=== PATIENT | male | born 1950 | race Caucasian/White ===

== ENCOUNTER 2025-05-12 11:10 | Inpatient (IN) | payer OTHER ==
[~2025-05-12] VITALS: Ht 165.1 cm; Wt 60.0 kg
[2025-05-12] MEDS: ONDANSETRON HCL 4 MG/2 ML VIAL IVP ONE (12:07)
[2025-05-12] MEDS: SODIUM CHLORIDE 0.9% 1,000 ML IV ONE ×2 (12:07→14:37)
[2025-05-12 13:22] LABS: PLATELET COUNT (AUTO) 300 K/uL (150-450); RED BLOOD CELL COUNT(AUTO) 4.33 MIL/uL (4.50-5.90); RED CELL DISTRIBUTION WIDTH 15.3 % (11.5-14.5); WHITE BLOOD COUNT (AUTO) 9.1 K/uL (4.5-11.0)
[2025-05-12 13:49] LABS: APPEARANCE,URINE CLEAR (CLEAR); GLUCOSE, URINE (UA) NEGATIVE (NEGATIVE); LEUKOCYTE ESTERASE ,URINE NEGATIVE (NEGATIVE); NITRATE,URINE NEGATIVE (NEGATIVE); OCCULT BLOOD,URINE NEGATIVE (NEGATIVE); PH,URINE DRUG SCREEN 7.0 (5.0-8.0); SPECIFIC GRAVITIY, URINE 1.024 (1.003-1.030)
[2025-05-12 13:57] LABS: AMPHET/METH SCREEN,URINE NEGATIVE (NEGATIVE); BARBITURATE SCREEN, URINE NEGATIVE (NEGATIVE); CANNABINOID SCREEN,URINE NEGATIVE (NEGATIVE); COCAINE SCREEN,URINE NEGATIVE (NEGATIVE); METHADONE SCREEN, URINE NEGATIVE (NEGATIVE)
[2025-05-12 13:59] LABS: ALCOHOL, URINE DRUG SCREEN NEGATIVE (NEGATIVE)
[2025-05-12 14:02] LABS: CALCIUM, TOTAL 8.5 mg/dL (8.8-10.5); CREATININE 0.43 mg/dL (0.60-1.30); GLOMERULAR FILTR. RATE CALC > 60 mL/min (>60); GLUCOSE,RANDOM 100 mg/dL (70-110); SODIUM SERUM 139 mmol/L (136-145); UREA NITROGEN, BLOOD 14 mg/dL (7-18)
[2025-05-12 14:05] LABS: TROPONIN I-HIGH SENSITIVITY 12 ng/L (<76)
[2025-05-12 14:12] LABS: LACTIC ACID 0.5 mmol/L (0.4-2.0)
[2025-05-12] MEDS ORDERED: DOCU-119 PO (17:13)
[2025-05-12] MEDS ORDERED: IPRATROPIUM BROMIDE 0.5 MG/2.5 ML NEB SOLUTION NEB PRN (20:00)
[2025-05-12] MEDS ORDERED: ACETAMINOPHEN 325 MG TABLET PO PRN (20:00)
[2025-05-12] MEDS ORDERED: ONDANSETRON HCL 4 MG/2 ML VIAL IVP PRN (20:00)
[2025-05-12] MEDS ORDERED: BISACODYL 10 MG RECTAL RECTAL SUPPOSITORY PR PRN (20:00)
[2025-05-12] MEDS ORDERED: MAGNESIUM HYDROXIDE SUSPENSION 30 ML UDCUP PO PRN (20:00)
[2025-05-12] MEDS ORDERED: MORPHINE SULFATE 4 MG/ML SYRINGE IVP PRN (20:00)
[2025-05-12] MEDS ORDERED: ALBUTEROL SULFATE 2.5 MG/0.5 ML NEB SOLUTION NEB PRN (20:00)
[2025-05-12] MEDS ORDERED: ZOLPIDEM TARTRATE 5 MG TABLET PO PRN (20:00)
[2025-05-12] MEDS ORDERED: HYDROCODONE/ACETAMINOPHEN 5-325 MG TABLET PO PRN (20:00)
[2025-05-12] MEDS: DOCUSATE SODIUM 100 MG CAPSULE PO SCH (21:00)
[2025-05-12 22:00] VITALS: O2SAT 97
[2025-05-12 23:18] VITALS: BP 150/87; PULSE 67; RESP 18; TEMP 98.5; O2SAT 100
[2025-05-12] MEDS: HEPARIN SODIUM,PORCINE 5,000 UNITS/ML VIAL SQ SCH (23:41)
[2025-05-12] MEDS: RINGERS SOLUTION,LACTATED 1,000 ML IV SCH (23:41)
[2025-05-13] MEDS: INFLUENZA VIRUS VACCINE TVS (6MO+) 2025-26/PF 45 MCG/0.5 ML SYRINGE IM. ONE (03:15)
[2025-05-13 03:55] VITALS: BP 129/71; PULSE 61; RESP 17; TEMP 98; O2SAT 100
[2025-05-13 08:43] VITALS: BP 131/67; PULSE 60; RESP 18; TEMP 98.2; O2SAT 97
[2025-05-13] MEDS: PANTOPRAZOLE SODIUM 40 MG/VIAL IVP SCH (09:02)
[2025-05-13] MEDS ORDERED: SODIUM CHLORIDE 0.9% 1,000 ML ONE (12:23)
[2025-05-13] MEDS: CHLORHEXIDINE GLUCONATE 2% TOWELETTE [2'S/6'S] TP ONE (12:40)
[2025-05-13] MEDS: ETHYL ALCOHOL 62% ANTISEPTIC NASAL SANITIZER 0.6 ML AMPUL NASAL ONE (12:40)
[2025-05-13] MEDS ORDERED: BUPIVACAINE 0.25%/EPI 1:200,000/PF 10 ML VIAL ONE (13:09)
[2025-05-13] MEDS ORDERED: RINGERS SOLUTION,LACTATED 1,000 ML IV ONE (13:58)
[2025-05-13] MEDS: BUPIVACAINE 0.25%/EPI 1:200,000/PF 30 ML VIAL ONE (14:46)
[2025-05-13] MEDS ORDERED: MORPHINE SULFATE 2 MG/ML SYRINGE IVP PRN (15:15)
[2025-05-13] MEDS ORDERED: HYDROCODONE/ACETAMINOPHEN 5-325 MG TABLET PO PRN (15:15)
[2025-05-13 20:50] VITALS: BP 116/61; PULSE 86; RESP 18; TEMP 99.3; O2SAT 98
[2025-05-13 21:58] VITALS: TEMP 98.2
[2025-05-14 04:47] VITALS: BP 131/59; PULSE 74; RESP 18; TEMP 98.4; O2SAT 96
[2025-05-14 08:26] VITALS: BP 156/71; PULSE 65; RESP 18; TEMP 98.2; O2SAT 99
[2025-05-14 09:37] LABS: PLATELET COUNT (AUTO) 249 K/uL (150-450); RED BLOOD CELL COUNT(AUTO) 4.32 MIL/uL (4.50-5.90); RED CELL DISTRIBUTION WIDTH 15.4 % (11.5-14.5); WHITE BLOOD COUNT (AUTO) 13.0 K/uL (4.5-11.0)
[2025-05-14 09:48] LABS: CALCIUM, TOTAL 8.1 mg/dL (8.8-10.5); CREATININE 0.62 mg/dL (0.60-1.30); GLOMERULAR FILTR. RATE CALC > 60 mL/min (>60); GLUCOSE,RANDOM 130 mg/dL (70-110); SODIUM SERUM 138 mmol/L (136-145); UREA NITROGEN, BLOOD 16 mg/dL (7-18)
[2025-05-14] MEDS ORDERED: SUGAMMADEX SODIUM 200 MG/2 ML VIAL IVP ONE (17:42)
[2025-05-14] MEDS ORDERED: KETOROLAC TROMETHAMINE 60 MG/2 ML VIAL IM ONE (17:42)
[2025-05-14] MEDS ORDERED: ONDANSETRON HCL 4 MG/2 ML VIAL ONE (17:42)
[2025-05-14] MEDS ORDERED: LIDOCAINE/PF 2% 5 ML VIAL ONE (17:42)
[2025-05-14] MEDS ORDERED: DEXAMETHASONE SOD PHOS 4 MG/ML VIAL ONE (17:42)
[2025-05-14] MEDS ORDERED: ROCURONIUM BROMIDE 10 MG/ML 5 ML VIAL ONE (17:42)
[2025-05-14] MEDS ORDERED: PROPOFOL 1% 20 ML VIAL IVP ONE (17:42)
[2025-05-14 19:50] VITALS: BP 129/71; PULSE 79; RESP 18; TEMP 98.1; O2SAT 99
[2025-05-15 04:16] VITALS: BP 133/85; PULSE 81; RESP 18; TEMP 99.5; O2SAT 97
[2025-05-15 08:53] VITALS: BP 144/80; PULSE 82; RESP 18; TEMP 97.7; O2SAT 99
[2025-05-15] MEDS ORDERED: FentaNYL CITRATE PF 100 MCG/2 ML VIAL IM ONE (09:33)
[2025-05-15 10:56] LABS: PLATELET COUNT (AUTO) 241 K/uL (150-450); RED BLOOD CELL COUNT(AUTO) 4.49 MIL/uL (4.50-5.90); RED CELL DISTRIBUTION WIDTH 15.7 % (11.5-14.5); WHITE BLOOD COUNT (AUTO) 9.1 K/uL (4.5-11.0)
[2025-05-15] MEDS ORDERED: MAGN-169 PO (12:27)
[2025-05-15] MEDS ORDERED: ACET-2247 PO (12:27)
== END 2025-05-15 16:25 | DRG 352 ==
LOC: EMS 11:10 → EDH 16:44 → 6N 23:10
PROVIDERS: ADMIT Hospitalist; ATTEND Hospitalist
PROC: 0YU60JZ Supplement Left Inguinal Region with Synthetic Substitute, Open Approach (ICD-10-PCS; principal; 2025-05-13 13:00)
DX: K40.90 Unilateral inguinal hernia, without obstruction or gangrene, not specified as recurrent (principal); E86.0 Dehydration
CPT/HCPCS: 71045; 74176; 80048; 80307; 81001; 83605; 83690; 84484; 85025; 87081; 88302; 93005; 97162; 99285; J0690; J1100; J1644; J1885; J2405; J2470; J2704; J3010; J3490; J7030; J7120; 36415-L1; 36415-TC; Z7610